=== PATIENT | female | born 1965 | race Hispanic/Latino ===

== ENCOUNTER 2021-12-06 09:58 | Inpatient (IN) | payer SELFPAY ==
--- OUTSIDE RECORDS SUMMARY | 2021-12-06 10:00 | XMS REPORT | Continuity of Care Document ---
:1965 Author Organization [facility] t Address [address] [place] [address] Care Team Providers Name Role Phone Unavailable Unavailable Unavailable Payers Payer Name Policy Type Policy Number Effective Date Expiration Date S ource Problems This patient has no known problems. Allergies, Adverse Reactions, Alerts Allergy Allergy Status Severity Reaction(s) Onset Inactive Treating Comm ents Source Name Type Date Date Clinician No Known DA Active U 2017-03 [facility] [place] Allergie 0-27 [facility] Medications This patient has no known medications. Procedures This patient has no known procedures. Results This patient has no known results.
[2021-12-06 11:37] LABS: Absolute Lymphocytes (CBC) 1.2 K/uL (0.7-4.9); Hematocrit 46.3 % (36.0-45.0); Lymphocytes % 10.1 % (15.3-44.8); MCV 86.4 fL (80-100); MPV 8.8 fL (7.6-11.3); RBC Red Blood Cell Count 5.36 M/uL (3.86-4.86)
[2021-12-06 11:56] LABS: Albumin 4.3 g/dL (3.4-5.0); Bilirubin Total 1.8 mg/dL (0.2-1.0); Potassium 3.5 mmol/L (3.5-5.1); Protein, Total 8.3 g/dL (6.4-8.2)
[2021-12-06 12:25] LABS: Urine Blood Negative (Negative); Urine Glucose Negative (Negative); Urine Protein 1+ (Negative)
[2021-12-06] MEDS ORDERED: ONDANSETRON 4 MG/2 ML VIAL ONE ×2 (12:31→20:34)
[2021-12-06] MEDS ORDERED: MORPHINE 2 MG/ML SYR ONE ×2 (12:31→20:34)
[2021-12-06] MEDS ORDERED: FAMOTIDINE 20 MG/2 ML VIAL IV ONE (12:32)
--- NOTE | 2021-12-06 12:42 | RAD REPORT ---
EXAM DESCRIPTION: CT - Abdomen Pelvis W Contrast - 12/06/2021 12:18 pm CLINICAL HISTORY: Abdominal pain COMPARISON: none. TECHNIQUE: Computed axial tomography of the abdomen pelvis was obtained. 100 cc Isovue-300 was admin istered intravenously. Oral contrast was not requested which limits evaluation of bowel and appendix All CT scans are performed using dose optimization technique as appropriate and may include automated exposure control or mA/KV adjustment according to patient size. FINDINGS: Fatty liver. Mild hepatomegaly The spleen, adrenals and kidneys unremarkable The pancreas is normal size and density. There is mild to moderate stranding within the teres pancrea tic fat. No pseudocysts. There is no evidence of diverticulitis. Normal appendix. Hysterectomy. No adnexal mass Moderate umbilical hernia contains fat IMPRESSION: Mild to moderate pancreatitis
--- NOTE | 2021-12-06 13:30 | ER ---
Nurse's Notes [facility] Name: Summer Chin Age: 56 yrs Sex: Female : 1965 Arrival Date: 12/06/2021 Time: 10:00 Bed 28 Private MD: Diagnosis: Biliary acute pancreatitis Presentation: 12/06 10:29 Chief complaint: Patient states: upper abd pain and vomiting that began at 0200 this ss am. Coronavirus screen: Client denies travel out of the [place] in the last 14 days. Ebola Screen: Patient denies exposure to infectious person. Patient denies travel to an Ebola-affected area in the 21 days before illness onset. Initial Sepsis Screen: Does the patient meet any 2 criteria? No. Patient's initial sepsis screen is negative. Does the patient have a suspected source of infection? No. Patient's initial sepsis screen is negative. Risk Assessment: Do you want to hurt yourself or someone else? Patient reports no desire to harm self or others. Onset of symptoms was December 06, 2021. 10:29 Method Of Arrival: Ambulatory ss 10:29 Acuity: WALTER 2 ss Historical: - Allergies: 10:31 No Known Allergies; ss - PMHx: 10:31 Depressive disorder; ss - PSHx: 10:31 section; Hysterectomy; ss - Immunization history:: Client reports receiving the 2nd dose of the Covid vaccine. - Social history:: Smoking status: Patient denies any tobacco usage or history of. Screenin:32 Abuse screen: Denies threats or abuse. Denies injuries from another. Nutritional hb screening: No deficits noted. Tuberculosis screening: No symptoms or risk factors identified. Fall Risk None identified. Assessment: 12:30 General: Appears in no apparent distress. uncomfortable, Behavior is calm, cooperative. hb Pain: Pain currently is 8 out of 10 on a pain scale. Noted to be grimacing. Neuro: Level of Consciousness is awake, alert, obeys commands, Oriented to person, place, time, situation. Cardiovascular: Patient's skin is warm and dry. Respiratory: Respiratory effort is even, unlabored, Respiratory pattern is regular, symmetrical. GI: Reports upper abdominal pain, nausea. : No signs and/or symptoms were reported regarding the genitourinary system. EENT: No signs and/or symptoms were reported regarding the EENT system. Derm: Skin is pink, warm \T\ dry. Musculoskeletal: No signs and/or symptoms reported regarding the musculoskeletal system. 13:30 Reassessment: Patient appears in no apparent distress at this time. Patient and/or hb family updated on plan of care and expected duration. Pain level reassessed. Patient is alert, oriented x 3, equal unlabored respirations, skin warm/dry/pink. 14:30 Reassessment: Patient appears in no apparent distress at this time. Patient and/or hb family updated on plan of care and expected duration. Pain level reassessed. Patient is alert, oriented x 3, equal unlabored respirations, skin warm/dry/pink. 15:30 Reassessment: Patient appears in no apparent distress at this time. Patient and/or hb family updated on plan of care and expected duration. Pain level reassessed. Patient is alert, oriented x 3, equal unlabored respirations, skin warm/dry/pink. 16:30 Reassessment: Patient appears in no apparent distress at this time. Patient and/or hb family updated on plan of care and expected duration. Pain level reassessed. Patient is alert, oriented x 3, equal unlabored respirations, skin warm/dry/pink. 17:30 Reassessment: Patient appears in no apparent distress at this time. Patient and/or hb family updated on plan of care and expected duration. Pain level reassessed. Patient is alert, oriented x 3, equal unlabored respirations, skin warm/dry/pink. 18:30 Reassessment: Patient appears in no apparent distress at this time. Patient and/or hb family updated on plan of care and expected duration. Pain level reassessed. Patient is alert, oriented x 3, equal unlabored respirations, skin warm/dry/pink. 19:30 Reassessment: Patient appears in no apparent distress at this time. Patient and/or hb family updated on plan of care and expected duration. Pain level reassessed. Patient is alert, oriented x 3, equal unlabored respirations, skin warm/dry/pink. Vital Signs: 10:29 BP 165 / 119; Pulse 105; Resp 20; Temp 97.6(TE); Pulse Ox 99% on R/A; Weight 64.86 kg; ss Height 5 ft. 0 in. (152.40 cm); Pain 10/10; 12:30 BP 152 / 106; Pulse 72; Resp 17; Pulse Ox 98% on R/A; Pain 8/10; hb 13:00 BP 144 / 90; Pulse 76; Resp 15; Pulse Ox 99% on R/A; hb 15:00 BP 146 / 90; Pulse 69; Resp 15; Pulse Ox 97% ; hb 17:06 BP 172 / 93; Pulse 67; Resp 16; Pulse Ox 99% on R/A; hb 18:30 BP 151 / 82; Pulse 73; Resp 15; Pulse Ox 97% on R/A; hb 20:00 BP 148 / 88; Pulse 74; Resp 17; Pulse Ox 99% on R/A; hb 10:29 Body Mass Index 27.93 (64.86 kg, 152.40 cm) ED Course: 10:00 Patient arrived in ED. mr 10:31 Triage completed. ss 10:31 Arm band placed on right wrist. ss 10:34 [facility] jl9 10:34 Xander Johnston MD is Attending Physician. jl9 11:31 Inserted saline lock: 20 gauge in right antecubital area, using aseptic technique. kc6 Blood collected. 11:31 CBC with Diff Sent. kc6 11:31 CMP Sent. kc6 11:31 Lipase Sent. kc6 12:19 Lana Schafer, RN is Primary Nurse. hb 12:20 CT Abd/Pelvis - IV Contrast Only In Process Unspecified. EDMS 12:32 Patient has correct armband on for positive identification. hb 13:29 Xander Johnston MD is Hospitalizing Provider. jl9 13:29 Breezy Garber is Hospitalizing Provider. jl9 Administered Medications: 12:27 Drug: Zofran (Ondansetron) 4 mg Route: IVP; Site: right antecubital; hb 13:42 Follow up: Response: No adverse reaction hb 12:29 Drug: Pepcid (famotidine) 20 mg Route: IVP; Site: right antecubital; hb 13:42 Follow up: Response: No adverse reaction hb 12:29 Drug: morphine 2 mg Route: IVP; Infused Over: 4 mins; Site: right antecubital; hb 13:42 Follow up: Response: No adverse reaction hb Medication: 17:07 VIS not applicable for this client. hb Outcome: 13:30 Decision to Hospitalize by Provider. jl9 21:01 Patient left the ED. Signatures: Dispatcher [employer] BEVOH Grace Hollis Jie Montes RN RN Lana Rivas RN RN Pavan Severino jl9 Marietta Bates kc6 Corrections: (The following items were deleted from the chart) 10: 10:31 PMHx: None; ss ss 10:31 10:31 PSHx: None; ss 10:32 10:29 Acuity: WALTER 3 ss
--- NOTE | 2021-12-06 13:30 | EDPHYS ---
Physician Documentation [facility] Name: Summer Chin Age: 56 yrs Sex: Female : 1965 Arrival Date: 12/06/2021 Time: 10:00 Bed 28 Private MD: BEV Physician Xander Johnston HPI: 12/06 13:03 This 56 yrs old Female presents to ER via Ambulatory with complaints of jl9 Abdominal Pain that woke her up from her sleep at 0200 this morning. Patient describes a sharp epigastric pain. . 13:03 The patient presents with abdominal pain in the epigastric area. Onset: The jl9 symptoms/episode began/occurred suddenly, this morning. The symptoms do not radiate. Associated signs and symptoms: Pertinent positives:. The symptoms are described as sharp. Modifying factors: The symptoms are alleviated by nothing, the symptoms are aggravated by nothing. Severity of pain: in the emergency department the pain is a 6 / 10. The patient has not experienced similar symptoms in the past. Historical: - Allergies: 10:31 No Known Allergies; ss - PMHx: 10:31 Depressive disorder; ss - PSHx: 10:31 section; Hysterectomy; ss - Immunization history:: Client reports receiving the 2nd dose of the Covid vaccine. - Social history:: Smoking status: Patient denies any tobacco usage or history of. ROS: 13:04 Constitutional: Negative for fever, chills, and weight loss, Eyes: Negative for injury, jl9 pain, redness, and discharge, ENT: Negative for injury, pain, and discharge, Neck: Negative for injury, pain, and swelling, Cardiovascular: Negative for chest pain, palpitations, and edema, Respiratory: Negative for shortness of breath, cough, wheezing, and pleuritic chest pain. 13:04 Back: Negative for injury and pain, : Negative for injury, bleeding, discharge, and swelling, MS/Extremity: Negative for injury and deformity, Skin: Negative for injury, rash, and discoloration, Neuro: Negative for headache, weakness, numbness, tingling, and seizure, Psych: Negative for depression, anxiety, suicide ideation, homicidal ideation, and hallucinations, Allergy/Immunology: Negative for hives, rash, and allergies, Endocrine: Negative for neck swelling, polydipsia, polyuria, polyphagia, and marked weight changes, Hematologic/Lymphatic: Negative for swollen nodes, abnormal bleeding, and unusual bruising. 13:04 Abdomen/GI: Positive for abdominal pain, nausea. Exam: 13:04 Constitutional: This is a well developed, well nourished patient who is awake, alert, jl9 and in no acute distress. Head/Face: Normocephalic, atraumatic. Eyes: Pupils equal round and reactive to light, extra-ocular motions intact. Lids and lashes normal. Conjunctiva and sclera are non-icteric and not injected. Cornea within normal limits. Periorbital areas with no swelling, redness, or edema. ENT: Mucous membranes moist. Neck: Trachea midline, no thyromegaly or masses palpated, and no cervical lymphadenopathy. Supple, full range of motion without nuchal rigidity, or vertebral point tenderness. No Meningismus. Chest/axilla: Normal chest wall appearance and motion. Nontender with no deformity. No lesions are appreciated. Cardiovascular: Regular rate and rhythm with a normal S1 and S2. No gallops, murmurs, or rubs. Normal PMI, no JVD. No pulse deficits. Respiratory: Lungs have equal breath sounds bilaterally, clear to auscultation and percussion. No rales, rhonchi or wheezes noted. No increased work of breathing, no retractions or nasal flaring. 13:04 Back: No spinal tenderness. No costovertebral tenderness. Full range of motion. Skin: Warm, dry with normal turgor. Normal color with no rashes, no lesions, and no evidence of cellulitis. MS/ Extremity: Pulses equal, no cyanosis. Neurovascular intact. Full, normal range of motion. Neuro: Awake and alert, GCS 15, oriented to person, place, time, and situation. Cranial nerves II-XII grossly intact. Motor strength 5/5 in all extremities. Sensory grossly intact. Cerebellar exam normal. Normal gait. Psych: Awake, alert, with orientation to person, place and time. Behavior, mood, and affect are within normal limits. 13:04 Abdomen/GI: Inspection: abdomen appears normal, Bowel sounds: normal, Palpation: moderate abdominal tenderness, in the epigastric area. Vital Signs: 10:29 BP 165 / 119; Pulse 105; Resp 20; Temp 97.6(TE); Pulse Ox 99% on R/A; Weight 64.86 kg; ss Height 5 ft. 0 in. (152.40 cm); Pain 10/10; 12:30 BP 152 / 106; Pulse 72; Resp 17; Pulse Ox 98% on R/A; Pain 8/10; hb 13:00 BP 144 / 90; Pulse 76; Resp 15; Pulse Ox 99% on R/A; hb 15:00 BP 146 / 90; Pulse 69; Resp 15; Pulse Ox 97% ; hb 17:06 BP 172 / 93; Pulse 67; Resp 16; Pulse Ox 99% on R/A; hb 18:30 BP 151 / 82; Pulse 73; Resp 15; Pulse Ox 97% on R/A; hb 20:00 BP 148 / 88; Pulse 74; Resp 17; Pulse Ox 99% on R/A; hb 10:29 Body Mass Index 27.93 (64.86 kg, 152.40 cm) ss MDM: 10:35 Patient medically screened. [facility] 13:05 Data reviewed: vital signs, nurses notes. Counseling: I had a detailed discussion with [facility] the patient and/or guardian regarding: the historical points, exam findings, and any diagnostic results supporting the discharge/admit diagnosis, lab results, radiology results, the need for further work-up and treatment in the hospital. 13:29 Physician consultation: Dr. Garber will see patient. . 12/06 10:35 Order name: CBC with Diff; Complete Time: 12:19 12/06 10:35 Order name: CMP; Complete Time: 12:19 12/06 10:35 Order name: Lipase; Complete Time: 12:19 12/06 10:35 Order name: CT Abd/Pelvis - IV Contrast Only; Complete Time: 12:47 12/06 12:25 Order name: Urine Dipstick-Ancillary; Complete Time: 12:36 EDWV 12/06 12:48 Order name: SARS RAPID; Complete Time: 13:57 12/06 10:35 Order name: IV Saline Lock; Complete Time: 11:31 12/06 10:35 Order name: Labs collected and sent; Complete Time: 11:31 12/06 10:35 Order name: Urine Dipstick-Ancillary (obtain specimen); Complete Time: 12:19 12/06 13:36 Order name: NPO; Complete Time: 13:42 jl9 12/06 19:16 Order name: MRI EDMS Administered Medications: 12:27 Drug: Zofran (Ondansetron) 4 mg Route: IVP; Site: right antecubital; hb 13:42 Follow up: Response: No adverse reaction hb 12:29 Drug: Pepcid (famotidine) 20 mg Route: IVP; Site: right antecubital; hb 13:42 Follow up: Response: No adverse reaction hb 12:29 Drug: morphine 2 mg Route: IVP; Infused Over: 4 mins; Site: right antecubital; hb 13:42 Follow up: Response: No adverse reaction hb Disposition Summary: 12/06/21 13:30 Hospitalization Ordered Hospitalization Status: Inpatient Admission jl9 Provider: Breezy Garber jl9 Location: Telemetry/MedSurg (Inpatient) jl9 Condition: Fair jl9 Problem: new jl9 Symptoms: have improved jl9 Bed/Room Type: Standard 9 Room Assignment: 424(12/06/21 18:48) Diagnosis - Biliary acute pancreatitis jl9 Forms: - Medication Reconciliation Form jl9 - SBAR form jl9 Signatures: Dispatcher [employer] EDMS Genet Meyer RN RN Jie Oconnor RN RN Lana Rivas RN RN Pavan Severino jl9 Corrections: (The following items were deleted from the chart) 10:31 10:31 PMHx: None; ss ss 10:31 10:31 PSHx: None; ss ss 18:48 13:30 jl9 dw
[2021-12-06 13:54] LABS: SARS-CoV-2 Antigen Rapid Res Negative (Negative)
--- NOTE | 2021-12-06 16:23 | P.HP ---
Certification for Inpatient Patient admitted to: Inpatient With expected LOS: >2 Midnights Practitioner: I am a practitioner with admitting privileges, knowledge of patient current condition, hospital course, and medical plan of care. Services: Services provided to patient in accordance with Admission requirements found in Title 42 Section 412.3 of the Code of Federal Regulations Patient History Date of Service: 12/06/21 Reason for admission: Abdominal pain History of Present Illness: 56-year-old obese Lithuanian-speaking woman with a history of hypertension presented to the emergency department with a complaint of abdominal pain of 1 day duration. Patient describes severe abdominal pain, associated with nausea, no diarrhea, no constipation or vomiting. She denied any fever. No known aggravating or relieving factors. Work-up in the emergency department revealed markedly elevated lipase level, CT abdomen also demonstrating inflamed pancreas. Patient diagnosed with acute pancreatitis. She stated she experienced a similar episode about 3 months ago. No fever. She has mild leukocytosis but does not admitted criteria for sepsis. Liver enzymes are elevated, no ga llstones reported on the CT scan. Patient admitted for further management. - Past Medical/Surgical History -: Hypertension - Family History Mother -: Diabetes - Social History Smoking Status: Never smoker Alcohol use: No CD- Drugs: No Place of Residence: Home Review of Systems Other: Except as documented, all other systems reviewed and negative. Physical Examination - Physical Exam General: Alert, In no apparent distress, Oriented x3, Obese HEENT: Normocephalic, Mucous membr. moist/pink, Sclerae nonicteric Neck: Supple, 2+ carotid pulse no bruit, JVD not distended, No Thyromegaly Respiratory: Clear to auscultation bilaterally, Normal air movement Gastrointestinal: Normal bowel sounds, Soft and benign, Non-distended, Tenderness (Epigastrium) Musculoskeletal: No swelling, No tenderness Integumentary: No rashes, No cyanosis Neurological: Normal speech, Normal strength at 5/5 x4 extr, Cranial nerves 3-12 intact Lymphatics: No axilla or inguinal lymphadenopathy - Studies Laboratory Data (last 24 hrs) 12/06/21 11:28: Sodium 137, Potassium 3.5, BUN 17, Creatinine 0.90, Glucose 191 H, Total Bilirubin 1.8 H, AST 82 H, ALT 119 H, Alkaline Phosphatase 76, Lipase 38423 H 12/06/21 11:28: WBC 11.40 H, Hgb 15.9 H, Hct 46.3 H, Plt Count 277 Assessment and Plan - Problems (Diagnosis) (1) Acute pancreatitis Current Visit: Yes Status: Acute (2) Hyperglycemia Current Visit: Yes Status: Acute (3) Hypertension Current Visit: Yes Status: Acute (4) Elevated LFTs Current Visit: Yes Status: Acute - Plan Admit patient to the medical floor. Supportive measures with aggressive IV hydration Serial lipase. CT abdomen and pelvis shows no gallstones. Patient may need MRCP given elevated LFTs and total bilirubin. Hold hydrochlorothiazide. Monitor LFT. Keep n.p.o. overnight. Insulin sliding scale for hyperglycemia Check hemoglobin A1c. - Advance Directives Does patient have a Living Will: No Does patient have a Durable POA for Healthcare: No
--- NOTE | 2021-12-06 19:15 | RAD REPORT ---
EXAM DESCRIPTION: MRICholangiogram12/06/2021 6:22 pm CLINICAL HISTORY: Abdominal pain COMPARISON: CT abdomen same date TECHNIQUE: Magnetic resonance cholangiogram was performed.3D MIP reconstruction performed FINDINGS: A filling defect within the gallbladder is not seen The biliary tree is normal caliber without a filling defect. Pancreatic duct is normal caliber Mild to moderate stranding within the peripancreatic fat. Trace amount of fluid adjacent to the pancr eatic tail. No pseudocyst IMPRESSION: [id number] pancreatitis
[2021-12-06] MEDS: MORPHINE 2 MG/ML SYR IV PRN (20:29)
[2021-12-06] MEDS: ONDANSETRON 4 MG/2 ML VIAL IV PRN (20:30)
[2021-12-06] MEDS: INSULIN -REGULAR HUMAN 50 UNIT/0.5 ML ML SQ SCH (20:30)
[2021-12-06] MEDS: HEPARIN 5000 UNIT/ML 1 ML VIAL SQ SCH (21:41)
[2021-12-06] MEDS: NA CHLORIDE 0.9% 1,000 ML IV SCH (21:41)
[2021-12-07] MEDS: HEPARIN 5000 UNIT/ML 1 ML VIAL SQ SCH ×3 (01:00→17:59)
[2021-12-07 02:12] VITALS: BMI 27.9
[2021-12-07] MEDS: MORPHINE 2 MG/ML SYR IV PRN ×5 (02:37→20:18)
[2021-12-07 05:41] LABS: Absolute Lymphocytes (CBC) 1.6 K/uL (0.7-4.9); Hematocrit 39.8 % (36.0-45.0); Lymphocytes % 17.9 % (15.3-44.8); MCV 84.9 fL (80-100); MPV 8.3 fL (7.6-11.3); RBC Red Blood Cell Count 4.69 M/uL (3.86-4.86)
[2021-12-07 06:00] LABS: Albumin 3.6 g/dL (3.4-5.0); Bilirubin Total 2.5 mg/dL (0.2-1.0); Phosphorus 2.8 mg/dL (2.5-4.9); Potassium 3.2 mmol/L (3.5-5.1); Protein, Total 7.1 g/dL (6.4-8.2)
[2021-12-07] MEDS: NA CHLORIDE 0.9% 1,000 ML IV SCH ×5 (06:34→23:00)
[2021-12-07] MEDS: KCL 20 MEQ/100 mL IVPB 20 MEQ/100 ML BAG IV SCH ×2 (06:34→08:55)
[2021-12-07] MEDS: INSULIN -REGULAR HUMAN 50 UNIT/0.5 ML ML SQ SCH ×4 (07:30→21:00)
[2021-12-07] MEDS: ONDANSETRON 4 MG/2 ML VIAL IV PRN (10:35)
--- NOTE | 2021-12-07 15:08 | P.PN ---
Subjective Date of Service: 12/07/21 Chief Complaint: Abdominal pain Patient states she feels better than yesterday. She still complaining of abdominal pain. Physical Examination - Vital Signs Temperature: 97.4 F Blood Pressure: 126/69 Pulse: 88 Respirations: 18 Pulse Ox (%): 92 Assessment And Plan - Current Problems (Diagnosis) (1) Acute pancreatitis Current Visit: Yes Status: Acute (2) Hyperglycemia Current Visit: Yes Status: Acute (3) Hypertension Current Visit: Yes Status: Acute (4) Elevated LFTs Current Visit: Yes Status: Acute - Plan Physical Exam General: Alert, In no apparent distress. Respiratory: Clear to auscultation bilaterally, Normal air movement Gastrointestinal: Normal bowel sounds, Soft and benign, Non-distended, Tenderness in Epigastrium. Musculoskeletal: No swelling, No tenderness Integumentary: No rashes, No cyanosis Neurological: No focal motor deficit. Plan: Continue supportive measures with aggressive IV hydration Serial lipase. CT abdomen and pelvis shows no gallstones. MRCP reviewed: No CBD stone or gallstones. Hydrochlorothiazide on hold. LFT trended down. Start clear liquid diet. Insulin sliding scale for hyperglycemia. .
[2021-12-08] MEDS: HEPARIN 5000 UNIT/ML 1 ML VIAL SQ SCH ×3 (01:04→17:11)
[2021-12-08] MEDS: MORPHINE 2 MG/ML SYR IV PRN ×2 (01:05→15:22)
[2021-12-08] MEDS: NA CHLORIDE 0.9% 1,000 ML IV SCH ×4 (03:45→18:20)
[2021-12-08 04:40] LABS: Absolute Lymphocytes (CBC) 1.5 K/uL (0.7-4.9); Hematocrit 36.4 % (36.0-45.0); Lymphocytes % 16.9 % (15.3-44.8); MCV 85.1 fL (80-100); MPV 8.7 fL (7.6-11.3); RBC Red Blood Cell Count 4.28 M/uL (3.86-4.86)
[2021-12-08 05:02] LABS: Albumin 3.1 g/dL (3.4-5.0); Bilirubin Total 2.4 mg/dL (0.2-1.0); Potassium 3.5 mmol/L (3.5-5.1); Protein, Total 6.5 g/dL (6.4-8.2)
[2021-12-08] MEDS: INSULIN -REGULAR HUMAN 50 UNIT/0.5 ML ML SQ SCH ×4 (07:30→20:49)
[2021-12-08] MEDS ORDERED: POTASSIUM 25 MEQ EFFERV TAB PO ONE (09:00)
[2021-12-08] MEDS: ACETAMINOPHEN 325 MG TABLET PO PRN ×2 (09:16→20:48)
[2021-12-08 09:34] LABS: Specific Gravity 1.011 (1.005-1.030); Urine Bilirubin NEGATIVE (Negative); Urine Blood Negative (Negative); Urine Clarity Clear (Clear); Urine Color Light-Yellow (Yellow); Urine Glucose NEGATIVE (Negative); Urine Mucus Slight /HPF (None Seen); Urine Protein NEGATIVE (Negative); Urine Urobilinogen Normal (Normal)
[2021-12-08] MEDS ORDERED: SODIUM CHLORIDE 0.9% 10ML INJ IV PRN (15:09)
[2021-12-08] MEDS: PANTOPRAZOLE 40 MG INJ IVP SCH ×2 (15:35→20:48)
--- NOTE | 2021-12-08 15:52 | P.PN ---
Subjective Date of Service: 12/08/21 Chief Complaint: Abdominal pain Patient reports epigastric pain. She states her nausea has resolved. States that she feels hungry and wants to eat. Lipase trended down significantly. Physical Examination - Vital Signs Temperature: 97.2 F Blood Pressure: 138/80 Pulse: 73 Respirations: 18 Pulse Ox (%): 95 Assessment And Plan - Current Problems (Diagnosis) (1) Acute pancreatitis Current Visit: Yes Status: Acute (2) Hyperglycemia Current Visit: Yes Status: Acute (3) Hypertension Current Visit: Yes Status: Acute (4) Elevated LFTs Current Visit: Yes Status: Acute - Plan Physical Exam General: Alert, In no apparent distress. Respiratory: Clear to auscultation bilaterally, Normal air movement Gastrointestinal: Normal bowel sounds, Soft and benign, Non-distended, Tenderness in Epigastrium. Musculoskeletal: No swelling, No tenderness Integumentary: No rashes, No cyanosis Neurological: No focal motor deficit. Plan: Continue IV fluid Serial lipase. CT abdomen and pelvis shows no gallstones. MRCP reviewed: No CBD stone or gallstones. Hydrochlorothiazide on hold. AST/ALT/ALP trended down to normal levels. Bilirubin is still elevated. Continue with clear liquid diet. Start IV Protonix for possible GERD. Insulin sliding scale for hyperglycemia. .
[2021-12-09] MEDS: NA CHLORIDE 0.9% 1,000 ML IV SCH ×5 (00:45→21:40)
[2021-12-09] MEDS: HEPARIN 5000 UNIT/ML 1 ML VIAL SQ SCH ×3 (00:48→16:15)
[2021-12-09] MEDS: ACETAMINOPHEN 325 MG TABLET PO PRN (02:29)
[2021-12-09 03:58] LABS: Bilirubin Total 2.2 mg/dL (0.2-1.0); Potassium 3.5 mmol/L (3.5-5.1); Protein, Total 6.6 g/dL (6.4-8.2)
[2021-12-09] MEDS: MORPHINE 2 MG/ML SYR IV PRN ×3 (04:00→23:54)
[2021-12-09] MEDS: INSULIN -REGULAR HUMAN 50 UNIT/0.5 ML ML SQ SCH ×4 (07:30→21:00)
[2021-12-09] MEDS: PANTOPRAZOLE 40 MG INJ IVP SCH ×2 (08:14→21:12)
[2021-12-09] MEDS ORDERED: POTASSIUM 25 MEQ EFFERV TAB PO ONE (09:00)
--- NOTE | 2021-12-09 11:55 | RAD REPORT ---
EXAM DESCRIPTION: CT - Abdomen Pelvis Wo Contrast - 12/09/2021 10:56 am CLINICAL HISTORY: Abdominal pain. Intractable abdominal pain. COMPARISON: Abdomen Pelvis W Contrast dated 12/06/2021; Cholangiogram dated 12/06/2021 TECHNIQUE: CT imaging of the abdomen and pelvis was performed without contrast. Solid organ and vasc ular assessment is limited due to lack of IV contrast. All CT scans are performed using dose optimization technique as appropriate and may include automated exposure control or mA/KV adjustment according to patient size. FINDINGS: Mild atelectasis is present in both lung bases. Trace left pleural effusion. The liver demonstrates fatty infiltration. Spleen, adrenal glands and kidneys are within normal limit s for a limited non-contrast examination.Subtle pancreatic edematous appearance and surrounding fat s tranding. No peripancreatic fluid collections. No bowel obstruction, free air, free fluid or abscess. Moderate fat and small bowel containing umbili meek hernia. Mild diverticulosis of the sigmoid colon. Subtle thickening is seen in the cecum with a f ew adjacent lymph nodes present in the right lower quadrant. Appendix appears normal in size. The osseous structures are within normal limits. IMPRESSION: There is a thickened appearance to the cecum noted with a few mild lymph nodes present i n the surrounding fat. This could indicate colitis or underlying mass. Consider followup colonoscopy for direct visualization of this region. Mild edematous appearance to the pancreas is seen without peripancreatic fluid collection or other ab normality. Bibasilar atelectasis is present with trace left pleural effusion. Fatty liver. A limited non-contrast examination was performed as detailed.
[2021-12-10] MEDS: HEPARIN 5000 UNIT/ML 1 ML VIAL SQ SCH ×2 (01:27→08:35)
[2021-12-10] MEDS: NA CHLORIDE 0.9% 1,000 ML IV SCH ×2 (03:38→09:46)
[2021-12-10] MEDS: INSULIN -REGULAR HUMAN 50 UNIT/0.5 ML ML SQ SCH ×2 (07:26→11:09)
[2021-12-10] MEDS: PANTOPRAZOLE 40 MG INJ IVP SCH (08:36)
[2021-12-10 09:27] VITALS: O2SAT 99
[2021-12-10 11:30] VITALS: BP 134/80; TEMP 97
--- NOTE | 2021-12-10 12:00 | P.DS ---
Admission Date: 12/06/21 Discharge Date: 12/10/21 Disposition: ROUTINE DISCHARGE Discharge Condition: GOOD Reason for Admission: Abdominal pain Hospital Course: Patient is a 56-year-old female with a past medical history of hy pertension and zlw-fsleoiq-ixxamkhwc diabetes mellitus. She was admitted here with acute pancreatitis of unknown etiology. Her lipase was more than 25,000 on admission. She responded to supportive care and has been successfully resumed on diet. There was a plan to have the patient undergo endoscopic evaluation due to presence of cecal wall thickening. The patient decided to pursue this as out patient. Besides, we do not have GI coverage in the hospital today. I have made attempt to reach out to GI but was unsuccessful. Case discussed during MDR as well. Vital Signs/Physical Exam: Temp Pulse Resp BP Pulse Ox 97.0 F 70 18 134/80 96 12/10/21 11:30 12/10/21 11:30 12/10/21 11:30 12/10/21 11:30 12/10/21 11:30 General: Alert, In no apparent distress, Cooperative HEENT: Atraumatic, Normocephalic Respiratory: Clear to auscultation bilaterally, Normal air movement Cardiovascular: No edema, Normal pulses, Regular rate/rhythm, Normal S1 S2 Gastrointestinal: Normal bowel sounds, Soft and benign, Non-distended, Other (Mild epigastric tenderness) Musculoskeletal: No clubbing, No swelling, No contractures Neurological: Normal gait, Normal speech Laboratory Data at Discharge: WBC 8.80 K/uL (4.3-10.9) 12/08/21 03:36 Hgb 13.3 g/dL (12.0-15.0) 12/08/21 03:36 Hct 36.4 % (36.0-45.0) 12/08/21 03:36 Plt Count 182 K/uL (152-406) 12/08/21 03:36 Sodium 139 mmol/L (136-145) 12/09/21 03:08 Potassium 3.5 mmol/L (3.5-5.1) 12/09/21 03:08 BUN 4 mg/dL (7-18) L 12/09/21 03:08 Creatinine 0.57 mg/dL (0.55-1.3) 12/09/21 03:08 Glucose 116 mg/dL (74-106) H 12/09/21 03:08 Phosphorus 2.8 mg/dL (2.5-4.9) 12/07/21 05:13 Magnesium 2.0 mg/dL (1.8-2.4) 12/07/21 05:13 Total Bilirubin 2.2 mg/dL (0.2-1.0) H 12/09/21 03:08 AST 23 U/L (15-37) 12/09/21 03:08 ALT 51 U/L (12-78) 12/09/21 03:08 Alkaline Phosphatase 66 U/L (45-117) 12/09/21 03:08 Triglycerides 96 mg/dL (<150) 12/06/21 21:22 Cholesterol 201 mg/dL (<200) H 12/06/21 21:22 HDL Cholesterol 53 mg/dL (40-60) 12/06/21 21:22 Cholesterol/HDL Ratio 3.79 12/06/21 21:22 Lipase 152 U/L (73-393) 12/09/21 03:08 Home Medications: Metformin HCl 500 mg PO 1X 12/06/21 hydroCHLOROthiazide [Hydrochlorothiazide] 25 mg PO 1X 12/06/21 Pantoprazole [Protonix Tab*] 40 mg PO DAILY #30 tab 12/10/21 New Medications: Pantoprazole [Protonix Tab*] 40 mg PO DAILY #30 tab Followup: NONE,NONE [Primary Care Provider] -
[2021-12-10] MEDS: ACETAMINOPHEN 325 MG TABLET PO PRN (12:30)
== END 2021-12-10 12:52 | disposition home or self-care (01) | DRG 440 ==
LOC: ER 09:58 → ERHOLD 16:09 → 4TH 20:44 → 2ND 12-09 20:35
PROVIDERS: ADMIT Internal Medicine; ATTEND Internal Medicine
DX: K85.90 Acute pancreatitis without necrosis or infection, unspecified (principal); I10 Essential (primary) hypertension; E11.65 Type 2 diabetes mellitus with hyperglycemia; D72.829 Elevated white blood cell count, unspecified; R94.5 Abnormal results of liver function studies; Z79.84 Long term (current) use of oral hypoglycemic drugs; Z79.899 Other long term (current) drug therapy; Z90.710 Acquired absence of both cervix and uterus; Z20.822 Contact with and (suspected) exposure to COVID-19
CPT/HCPCS: 36415; 74176; 74177; 74181; 80053; 80061; 81003; 82947; 82977; 83036; 83690; 83735; 84100; 84132; 85025; 87811; 96374; 96375; 99284; C9113; J1644; J2270; J2405; J3480; J7030; Q9967

== ENCOUNTER 2022-11-25 15:51 | Emergency (ER) | payer OTHER, SELFPAY ==
--- OUTSIDE RECORDS SUMMARY | 2022-11-25 15:54 | XMS REPORT | Continuity of Care Document ---
:1965 Author Organization [facility] t Address 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 Problems Condition Condition Condition Status Onset Resolution Last Treating Co mments Source Name Details Category Date Date Treatment Clinician Date Positive Positive Disease Active Kelse y colorectal colorectal 6-06 Se ybold cancer cancer 00:00: - screening screening 00 Exte rna using using l Cologuard Cologuard test test Right Right Disease Active Mindi upper upper 6-06 Seybold quadrant quadrant 00:00: - abdominal abdominal 00 Exte rna pain pain l Prediabete Prediabete Disease Active Tiffany goodwiny s s 08-01 Seybold 00:00: - 00 Externa l Well adult Well adult Disease Active Tiffany brink exam exam 5-05 Seybold 00:00: - 00 Externa l Primary Primary Disease Active Mindi hypertensi hypertensi 5-05 Se ybold on on 00:00: - 00 Externa l Subclinica Subclinica Disease Active K elsey l l 5-05 Seybold hypothyroi hypothyroi 00:00: - dism dism 00 Externa l History of History of Disease Active Tiffany brink hypertensi hypertensi 4-05 Se ybold on on 00:00: - 00 Externa l Obesity Obesity Disease Active Mindi 4-05 Seybold 00:00: - 00 Externa l Umbilical Umbilical Disease Active Thom orta hernia hernia 4-05 Seybold without without 00:00: - obstructio obstructio 00 Ex terna n and n and l without without gangrene gangrene Allergies, Adverse Reactions, Alerts Allergy Allergy Status Severity Reaction(s) Onset Inactive Treating Comm ents Source Name Type Date Date Clinician No Known DA Active U 2017-03 [facility] Allergie 0-27 [facility] Social History Social Habit Start Date Stop Date Quantity Comments Source Gender identity Mindi Watson ybold - External Sexual orientation Mindi Watsonybold - External Alcohol intake 2022-11-21 2022-11-21 Lifetime Mindi y bold 00:00:00 00:00:00 non-drinker - External (finding) Education 2022-08-01 2022-08-01 9 Mindi Seybold 00:00:00 00:00:00 - External Tobacco use and 2022-07-01 2022-07-01 Smokeless tobacco Ke katieruddy Seybold exposure 00:00:00 00:00:00 non-user - External History of Social 2022-07-01 2022-07-01 Mindi Seybold function 00:00:00 00:00:00 - External Sex Ass[birth year] At [birth year] Mindi Se ybold 00:00:00 00:00:00 - External Smoking Status Start Date Stop Date Source Never smoked tobacco Mindi Watsonyb old - External Medications Ordered Filled Start Stop Current Ordering Indication Dosage Frequency Signature Comments Components Source Medication Medication Date Date Medication? Clinician (SIG) Name Name Na Yes Instructio Mindi Sulfate-K 8-25 ns Seybold Sulfate-Mg 00:00: provided - Sulf 00 to Externa (SUPREP patient. l BOWEL PREP Follow KIT) instructio 17.5-3.13-1 ns .6 GM/177ML provided oral by Solution provider.. Metformin 3-0 Yes [id number] 500mg Take 1 Mindi HCl 500 MG 6-06 tablet Seybold oral Tablet 00:00: (500 mg - 00 total) by Externa mouth in l the morning and 1 tablet (500 mg total) in the evening. Take with meals. Metformin 2022-0 Yes [id number] 500mg Take 1 Mindi HCl 500 MG 6-06 tablet Seybold oral Tablet 00:00: (500 mg - 00 total) by Externa mouth in l the morning and 1 tablet (500 mg total) in the evening. Take with meals. Lisinopril 2022-0 Yes [id number] 10mg Take 1 K elsey 10 MG oral 5-05 tablet (10 Sey bold Tablet 00:00: mg total) - 00 by mouth Externa daily l Metformin 2022-0 Yes [id number] 500mg Take 1 Mindi HCl 500 MG 5-05 tablet Seybold oral Tablet 00:00: (500 mg - 00 total) by Externa mouth l daily (with breakfast) Lisinopril 2022-0 Yes [id number] 10mg Take 1 K elsey 10 MG oral 5-05 tablet (10 Sey bold Tablet 00:00: mg total) - 00 by mouth Externa daily l Lisinopril 3-0 Yes [id number] 10mg Take 1 K elsey 10 MG oral 5-05 tablet (10 Sey bold Tablet 00:00: mg total) - 00 by mouth Externa daily l Metformin 2022-0 3- No [id number] 500mg Take 1 Mindi HCl 500 MG 5-05 06-06 tablet Seybol d oral Tablet 00:00: 00:00 (500 mg - 00 :00 total) by Externa mouth l daily (with breakfast) Pantoprazol 2021-0 2022- No 40mg Take 1 Thom sey e Sodium 40 12-10 tablet (40 S eybold MG oral 00:00: 00:00 mg total) - Tablet 00 :00 by mouth Externa Delayed daily l Response hydroCHLORO 2021-0 2022- No 25mg Take 1 Thom sey thiazide 25 12-06- tablet (25 S eybold MG oral 00:00: 00:00 mg total) - Tablet 00 :00 by mouth Externa daily l Vital Signs Vital Name Observation Time Observation Value Comments Source Systolic blood 2022-11-21 16:08:00 148 mm[Hg] Mindi Seybold - pressure External Diastolic blood 2022-11-21 16:08:00 92 mm[Hg] Thomse y Seybold - pressure External Heart rate 2022-11-21 16:08:00 64 /min Mindi Youssef eybold - External Body temperature 2022-11-21 16:08:00 36.44 Temitope Bethany ey Seybold - External Respiratory rate 2022-11-21 16:08:00 17 /min Bethany ey Seybold - External Body height 2022-11-21 16:08:00 152.4 cm Mindi Youssef eybold - External Body weight 2022-11-21 16:08:00 64.048 kg Mindi Youssef eybold - External BMI 2022-11-21 16:08:00 27.58 kg/m2 Mindi Youssef eybold - External Systolic blood 2022-09-02 14:52:00 136 mm[Hg] Mindi Seybold - pressure External Diastolic blood 2022-09-02 14:52:00 88 mm[Hg] Carolyn adams Seybold - pressure External Heart rate 2022-09-02 14:52:00 77 /min Mindi Youssef eybold - External Body temperature 2022-09-02 14:52:00 36.89 Temitope Bethany ey Seybold - External Respiratory rate 2022-09-02 14:52:00 14 /min Bethany fox Seybold - External Body height 2022-09-02 14:52:00 147.3 cm Mindi Youssef eybold - External Body weight 2022-09-02 14:52:00 68.947 kg Mindi Youssef eybold - External BMI 2022-09-02 14:52:00 31.77 kg/m2 Mindi Youssef eybold - External Systolic blood 2022-08-01 15:55:00 150 mm[Hg] Mindi Seybold - pressure External Diastolic blood 2022-08-01 15:55:00 90 mm[Hg] Carolyn y Seybold - pressure External Heart rate 2022-08-01 15:42:00 73 /min Mindi Youssef eybold - External Body temperature 2022-08-01 15:42:00 36.56 Temitope Bethany ey Seybold - External Respiratory rate 2022-08-01 15:42:00 17 /min Bethany ey Seybold - External Body height 2022-08-01 15:42:00 147.3 cm Mindi S eybold - External Body weight 2022-08-01 15:42:00 68.493 kg Mindi S eybold - External BMI 2022-08-01 15:42:00 31.56 kg/m2 Mindi S eybold - External Oxygen saturation in 2022-08-01 15:42:00 99 /min Mindi Seybold - Arterial blood by External Pulse oximetry Systolic blood 2022-07-02 15:28:00 134 mm[Hg] Mindi Seybold - pressure External Diastolic blood 2022-07-02 15:28:00 85 mm[Hg] Thomse y Seybold - pressure External Heart rate 2022-07-02 15:28:00 67 /min Mindi S eybold - External Body temperature 2022-07-02 15:28:00 36.44 Temitope Bethany ey Seybold - External Respiratory rate 2022-07-02 15:28:00 14 /min Bethany ey Seybold - External Body height 2022-07-02 15:28:00 147.3 cm Mindi Youssef eybold - External Body weight 2022-07-02 15:28:00 68.04 kg Mindi Youssef eybold - External BMI 2022-07-02 15:28:00 31.35 kg/m2 Mindi Youssef eybold - External Oxygen saturation in 2022-07-02 15:28:00 99 /min Mindi Seybold - Arterial blood by External Pulse oximetry Procedures This patient has no known procedures. Encounters Start End Encounter Admission Attending Care Care Encounter Source Date/Time Date/Time Type Type Clinicians Facility Department ID 2023-01-16 2023-01-16 Outpatient WARREN GALVAN [id number] Mindi 09:00:00 09:00:00 Seybol d 2022-12-03 2022-12-03 Outpatient MINDI GARDNER [id number] Mindi 08:15:00 08:15:00 TUTU Seybol d 2022-11-25 2022-11-25 Outpatient PREZAS MINDI KELLY [id number] Mindi 00:00:00 00:00:00 TUTU Seybol d 2022-11-21 2022-11-21 Outpatient WARREN GALVAN MINDI KELLY [id number] Mindi 11:00:00 11:00:00 Seybol d 2022-09-17 2022-09-17 Outpatient MINDI KELLY [id number] Mindi 10:40:00 10:40:00 Seybol d 2022-09-17 2022-09-17 Outpatient PREZAMINDI Youssef [id number] Mindi 00:00:00 00:00:00 TUTU Seybol d 2022-09-15 2022-09-15 Outpatient MINDI KELLY [id number] Mindi 11:30:00 11:30:00 Seybol d 2022-09-11 2022-09-11 Outpatient PREZASMINDI [id number] Mindi 00:00:00 00:00:00 TUTU Seybol d 2022-09-02 2022-09-02 Outpatient PREZASMINDI [id number] Mindi 10:00:00 10:00:00 TUTU Seybol d 2022-08-22 2022-08-22 Outpatient PREZASMINDI [id number] Mindi 00:00:00 00:00:00 TUTU Seybol d 2022-08-01 2022-08-01 Outpatient PREZASMINDI [id number] Mindi 10:30:00 10:30:00 TUTU Seybol d 2022-07-03 2022-07-03 Outpatient PREZASMINDI [id number] Mindi 00:00:00 00:00:00 TUTU Seybol d 2022-07-02 2022-07-02 Outpatient LAB90 MINDI KELLY [id number] Mindi 11:15:00 11:15:00 Seybol d 2022-07-02 2022-07-02 Outpatient PREZASMINDI [id number] Mindi 10:30:00 10:30:00 TUTU Seybol d Results This patient has no known results. History and Physical Notes Date/Time Note Provider Source 2022-11-21 Formatting of this note is different from the or iginal. [facility] 11:12:35-00:00 [facility] Gastroenterology HP CC: Here for colon cancer screening HPI: Patient is a 57 year old female here For colon c ancer screening Cologuard positive No prior colonscopy No FH colon cancer No diarrhea No bleeding No smoking No ETOH. Past Medical History: Diagnosis Date History of hypertension Obesity Pancreatitis Past Surgical History: Procedure Laterality Date TOTAL HYSTERECTOMY Social History Tobacco Use Smoking status: Never Smokeless tobacco: Never Vaping Use Vaping Use: Never used Substance Use Topics Alcohol use: Never Drug use: Never No Known Allergies Current Outpatient Medications on File Prior to Visit Medication Sig Dispense Refill Lisinopril 10 MG oral Tablet Take 1 tablet (10 mg total) by mouth daily 30 tablet 3 Metformin HCl 500 MG oral Tablet Take 1 tablet (500 mg total) by mouth in the morning and 1 tablet (500 mg total) in the evening. Take with meals. 180 tablet 3 No current facility-administered medications on file prior to visit. BP (!) 148/92 | Pulse 64 | T emp 97.6 ?F (36.4 ?C) (Oral) | Resp 17 | Ht 5' (1.524 m) | Wt 141 lb 3.2 oz (64 kg) | BMI 27.58 kg/m? GEN: Alert and oriented HEENT:no jaundice, no oral ulcers, no eye erythe ma CV: RRR RESP: no distress ABD:soft, NTTP SKIN: no rash NEURO: Follows commands Labs reviewed Assessment: 57 year old patient 1.) Colon cancer screening 2.) Cologuard positive - Colonoscopy with Conscious sedation Risk and benefits about proc edure discussed, including, but not limited to perforation, bleeding, reaction to medications and missed lesions. Alternative options provided. All patients questions answered to patient's sat isfaction. Warren Galvan MD Gastroenterology [facility] Electronically signed by Warren Galvan MD at 10/29 11:19 AM CDT Notes Date/Time Note Provider Source 2022-11-21 11:09:23-00:00 Formatting of this note is d ifferent from the original. [facility] Chief Complaint Patient presents with Colon Cancer Screening Positive colorectal cancer screening using [employer] test Eli Renteria Electronically signed by Eli Renteria at 10/29 11:14 AM CDT"
[2022-11-25] MEDS ORDERED: ACETAMINOPHEN 500 MG TAB ONE (17:06)
[2022-11-25 17:35] LABS: Specific Gravity 1.019 (1.005-1.030); Urine Bacteria None Seen /HPF (<20); Urine Bilirubin NEGATIVE (Negative); Urine Blood Negative (Negative); Urine Clarity Turbid (Clear); Urine Color Light-Yellow (Yellow); Urine Glucose NEGATIVE (Negative); Urine Mucus Slight /HPF (None Seen); Urine Protein TRACE (Negative); Urine RBC <5 /HPF (None Seen); Urine Urobilinogen Normal (Normal); Urine pH 7.5 (5.0-7.0)
[2022-11-25 17:49] LABS: Absolute Lymphocytes (CBC) 0.6 K/uL (0.7-4.9); Hematocrit 46.1 % (36.0-45.0); Lymphocytes % 10.5 % (15.3-44.8); MCV 86.8 fL (80-100); MPV 8.6 fL (7.6-11.3); Platelets 226 thou/uL (152-406); RBC Red Blood Cell Count 5.31 M/uL (3.86-4.86)
[2022-11-25 17:52] LABS: Protime INR 1.06
[2022-11-25 18:04] LABS: Albumin 4.9 g/dL (3.4-5.0); Potassium 3.9 mEq/L (3.5-5.1); Protein, Total 9.1 g/dL (6.4-8.2)
[2022-11-25] MEDS ORDERED: NA CHLORIDE 0.9% 1,000 ML ONE (18:31)
--- NOTE | 2022-11-25 18:43 | EDPHYS ---
Physician Documentation [facility] Name: Summer Chin Age: 57 yrs Sex: Female : 1965 Arrival Date: 11/25/2022 Time: 15:51 Bed 14 Private MD: ED Physician Trell Renteria HPI: 11/25 16:06 This 57 yrs old Female presents to ER via Unassigned with complaints of Flu kb Symptoms, Headache. 16:06 Pt c/o headache that woke her up from sleep at approx 0400. States she has also felt kb hot. Pt tearful in triage. States she has had similar headaches in the past due to high blood pressure. Pt has history of HTN and DM and takes HCTZ and metformin. Pt has colonoscopy scheduled for tomorrow. Denies any other pain, cough, congestion. . Historical: - Allergies: 16:51 No Known Allergies; kc6 - PMHx: 16:51 depressive disorder; kc6 - PSHx: 16:51 section; hysterectomy; kc6 - Immunization history:: Adult Immunizations unknown. - Social history:: Smoking status: unknown. ROS: 16:06 Constitutional: Negative for fever, chills, and weight loss. kb 16:06 Neuro: Positive for headache. 16:06 All other systems are negative. Exam: 16:06 Constitutional: This is a well developed, well nourished patient who is awake, alert, kb and in no acute distress. Head/Face: Normocephalic, atraumatic. Eyes: Pupils equal round and reactive to light, extra-ocular motions intact. Lids and lashes normal. Conjunctiva and sclera are non-icteric and not injected. Cornea within normal limits. Periorbital areas with no swelling, redness, or edema. ENT: Moist Mucous membranes Cardiovascular: Regular rate and rhythm with a normal S1 and S2. No gallops, murmurs, or rubs. No pulse deficits. Respiratory: Respirations even and unlabored. No increased work of breathing. Talking in full sentences Abdomen/GI: Soft, non-tender. No distention Skin: Warm, dry with normal turgor. Normal color. MS/ Extremity: Pulses equal, no cyanosis. Neurovascular intact. Full, normal range of motion. Neuro: Awake and alert, GCS 15, oriented to person, place, time, and situation. Moves all extremities. Normal gait. 21:43 ECG was reviewed by the Attending Physician. kb Vital Signs: 16:50 BP 158 / 102; Pulse 124; Resp 19 S; Temp 100.9(O); Pulse Ox 100% on R/A; kc6 17:30 BP 132 / 77; Pulse 109; Resp 20; Temp 100.3; Pulse Ox 100% on R/A; eh3 18:30 BP 116 / 80; Pulse 93; Resp 18; Pulse Ox 97% on R/A; eh3 Shailesh Coma Score: 18:27 Eye Response: spontaneous(4). Motor Response: obeys commands(6). Verbal Response: kb oriented(5). Total: 15. MDM: 16:02 Patient medically screened. kb 16:06 Data reviewed: vital signs, nurses notes. kb 18:27 Differential diagnosis: flu, covid, hypertension, dehydration. Counseling: I had a kb detailed discussion with the patient and/or guardian regarding the historical points, exam findings, and any diagnostic results supporting the discharge/admit diagnosis, lab results, radiology results, the need for outpatient follow up, a family practitioner, to return to the emergency department if symptoms worsen or persist or if there are any questions or concerns that arise at home. 11/25 16:04 Order name: Blood Culture Adult (2) 11/25 16:04 Order name: CBC with Diff; Complete Time: 17:54 kb 11/25 16:04 Order name: CMP; Complete Time: 18:08 kb 11/25 16:04 Order name: Lactate w/ 2H reflex if indic.; Complete Time: 18:41 kb 11/25 16:04 Order name: Protime (+inr); Complete Time: 17:54 kb 11/25 16:04 Order name: Ptt, Activated; Complete Time: 17:54 kb 11/25 16:04 Order name: Urinalysis w/ reflexes; Complete Time: 17:36 kb 11/25 16:04 Order name: Flu; Complete Time: 17:30 kb 11/25 16:04 Order name: COVID-19 SARS RT PCR; Complete Time: 17:40 kb 11/25 16:04 Order name: EKG; Complete Time: 16:05 kb 11/25 16:04 Order name: Accucheck; Complete Time: 17:39 kb 11/25 16:04 Order name: Cardiac monitoring; Complete Time: 17:39 kb 11/25 16:04 Order name: EKG - Nurse/Tech; Complete Time: 18:00 kb 11/25 16:04 Order name: IV Saline Lock - Large Bore; Complete Time: 17:39 kb 11/25 16:04 Order name: Labs collected and sent; Complete Time: 17:39 kb 11/25 16:04 Order name: O2 Per Protocol; Complete Time: 17:39 kb 11/25 16:04 Order name: O2 Sat Monitoring; Complete Time: 17:39 kb 11/25 16:04 Order name: Vital Signs; Complete Time: 17:39 kb EC:43 Rate is 107 beats/min. Rhythm is regular. QRS Butler is Normal. CT interval is normal at kb 156 msec. QRS interval is normal at 66 msec. QT interval is normal at 435 msec. Administered Medications: 16:50 Drug: Acetaminophen PO 1000 mg Route: PO; [facility] 19:28 Follow up: Response: Temperature is decreased [facility] 18:30 Drug: NS 0.9% IV 1000 ml Route: IV; Rate: 1000 ml; Site: left antecubital; 3 19:28 Follow up: IV Status: Completed infusion; IV Intake: 1000ml [facility] Disposition: 17:40 Co-signature as Attending Physician, Trell RODRIGUEZ was immediately available on-site ms3 in the Emergency Department for consultation in the care of the patient. Disposition Summary: 11/25/22 18:42 Discharge Ordered Location: Home kb Condition: Stable kb Diagnosis - Dehydration kb - SARS-associated coronavirus as the cause of diseases classified elsewhere kb - Headache kb Followup: kb - With: Emergency Department - When: As needed - Reason: Worsening of condition Followup: kb - With: Private Physician - When: 2 - 3 days - Reason: Recheck today's complaints, Continuance of care, Re-evaluation by your physician Discharge Instructions: - Discharge Summary Sheet kb - COVID-19 kb - Viral Illness, Adult kb Forms: - Medication Reconciliation Form kb - Thank You Letter kb - Antibiotic Education kb - Prescription Opioid Use kb - Patient Portal Instructions kb - Leadership Thank You Letter kb Signatures: Dispatcher [employer] Angelica Rapp, PEDRO LUISC LIV-Trell Rivas DO DO ms3 Hannah Bowie, RN RN eh3 Marietta Bates, RN RN kc6
--- NOTE | 2022-11-25 18:43 | ER ---
Nurse's Notes [facility] Name: Summer Chin Age: 57 yrs Sex: Female : 1965 Arrival Date: 11/25/2022 Time: 15:51 Bed 14 Private MD: Diagnosis: Dehydration;SARS-associated coronavirus as the cause of diseases classified elsewhere;Headache Presentation: 11/25 16:50 Chief complaint: Patient states: headache that started this morning. Coronavirus kc6 screen: At this time, the client does not indicate any symptoms associated with coronavirus-19. Ebola Screen: No symptoms or risks identified at this time. Initial Sepsis Screen: Does the patient meet any 2 criteria? Temp <36.0*C (96.8*F)) or > 38.3*C (100.9*F). HR > 90 bpm. Does the patient have a suspected source of infection? Yes:. Risk Assessment: Do you want to hurt yourself or someone else? Patient reports no desire to harm self or others. Onset of symptoms was November 25, 2022. 16:50 Method Of Arrival: Ambulatory 6 16:50 Acuity: WALTER 3 kc6 Triage Assessment: 16:51 Headache History: Denies prior headaches. General: Appears in no apparent distress. kc6 uncomfortable, Behavior is cooperative, appropriate for age, crying. Pain: Complains of pain in back, head Pain does not radiate. Pain currently is 10 out of 10 on a pain scale. Pain began gradually, Is continuous, Also complains of no other associated symptoms. EENT: No signs and/or symptoms were reported regarding the EENT system. Neuro: Level of Consciousness is awake, alert, obeys commands, Oriented to person, place, time, situation, Appropriate for age. Historical: - Allergies: 16:51 No Known Allergies; kc6 - PMHx: 16:51 depressive disorder; kc6 - PSHx: 16:51 section; hysterectomy; kc6 - Immunization history:: Adult Immunizations unknown. - Social history:: Smoking status: unknown. Screenin:00 [facility] ED Fall Risk Assessment (Adult) Score/Fall Risk Level 0 - 2 = Low Risk. Abuse eh3 screen: Denies threats or abuse. Denies injuries from another. Nutritional screening: No deficits noted. Tuberculosis screening: No symptoms or risk factors identified. Assessment: 17:00 General: Appears distressed, uncomfortable, Behavior is cooperative, crying. Pain: eh3 Complains of pain in face. Neuro: Level of Consciousness is awake, alert, obeys commands, Oriented to person, place, time, situation. Cardiovascular: Capillary refill < 3 seconds Patient's skin is warm and dry. Respiratory: Airway is patent Respiratory effort is even, unlabored, Respiratory pattern is regular, symmetrical. GI: Abdomen is round non-distended. Derm: Skin is healthy with good turgor. Musculoskeletal: Circulation, motion, and sensation intact. 18:00 Reassessment: Patient appears in no apparent distress at this time. Patient and/or 3 family updated on plan of care and expected duration. Pain level reassessed. Patient is alert, oriented x 3, equal unlabored respirations, skin warm/dry/pink. 18:46 Reassessment: Pt to be discharged upon completion of NS 1000 mL bolus. 3 19:00 Reassessment: Patient appears in no apparent distress at this time. Patient and/or 3 family updated on plan of care and expected duration. Pain level reassessed. Patient is alert, oriented x 3, equal unlabored respirations, skin warm/dry/pink. Vital Signs: 16:50 BP 158 / 102; Pulse 124; Resp 19 S; Temp 100.9(O); Pulse Ox 100% on R/A; kc6 17:30 BP 132 / 77; Pulse 109; Resp 20; Temp 100.3; Pulse Ox 100% on R/A; eh3 18:30 BP 116 / 80; Pulse 93; Resp 18; Pulse Ox 97% on R/A; eh3 Shailesh Coma Score: 18:27 Eye Response: spontaneous(4). Motor Response: obeys commands(6). Verbal Response: kb oriented(5). Total: 15. ED Course: 15:53 Patient arrived in ED. kj1 15:59 Angel[facility]C [facility] kb 15:59 Trell Renteria DO is Attending Physician. kb 16:46 Hannah Bowie, RN is Primary Nurse. eh3 16:51 Triage completed. kc6 16:51 Arm band placed on. kc6 17:00 Patient has correct armband on for positive identification. Bed in low position. Call eh3 light in reach. Side rails up X2. Provided Education on: Use of call baird. Client placed on continuous cardiac and pulse oximetry monitoring. NIBP monitoring applied. 17:00 Inserted saline lock: 22 gauge in left antecubital area, using aseptic technique. Blood eh3 collected. 18:49 No provider procedures requiring assistance completed. eh3 19:28 IV discontinued, intact, bleeding controlled, No redness/swelling at site. Pressure eh3 dressing applied. Administered Medications: 16:50 Drug: Acetaminophen PO 1000 mg Route: PO; eh3 19:28 Follow up: Response: Temperature is decreased eh3 18:30 Drug: NS 0.9% IV 1000 ml Route: IV; Rate: 1000 ml; Site: left antecubital; eh3 19:28 Follow up: IV Status: Completed infusion; IV Intake: 1000ml eh3 Medication: 18:49 VIS not applicable for this client. eh3 Intake: 19:28 IV: 1000ml; Total: 1000ml. eh3 Outcome: 18:42 Discharge ordered by MD. luong 19:28 Discharged to home ambulatory. eh3 19:28 Condition: stable 19:28 Discharge instructions given to patient, Instructed on discharge instructions, follow up and referral plans. Demonstrated understanding of instructions, follow-up care. 19:28 Patient left the ED. eh3 Signatures: Angelica Jackson, LIV-Jeimy YOUSSEFP-Daniela Giron kj1 Hannah Bowie RN RN eh3 Marietta Bates RN RN kc6 Corrections: (The following items were deleted from the chart) 19:28 19:00 IV discontinued, intact, bleeding controlled, No redness/swelling at site. eh3 Pressure dressing applied, eh3
[2022-11-25 19:36] VITALS: TEMP 100.3
[2022-11-25 19:37] VITALS: BP 116/80; O2SAT 97
--- NOTE | 2022-11-26 13:05 | EKG ---
Test Date: 2022-11-25 Test Time: 17:53:35 Home Health Nurse: EUNICE MEASUREMENT RESULTS: Intervals: Rate: 107 NC: 156 QRSD: 66 QT: 326 QTc: 435 [place]: P: 63 NC: 156 QRS: 42 T: 265 INTERPRETIVE STATEMENTS: Sinus tachycardia Low voltage QRS T wave abnormality, consider inferior ischemia Abnormal ECG No previous ECG available for comparison Electronically Signed On 11-26-22 13:03:35 CDT by Ravinder Ibarra
== END 2022-11-25 19:28 | disposition home or self-care (01) ==
LOC: ER 15:51
DX: U07.1 COVID-19 (principal); E86.0 Dehydration
CPT/HCPCS: 87040 ×2; 85025; 81001; 36415; 85610; 83605; 85730; 80053; 87635; 87804 ×2; J7030; 93005